=== PATIENT | female | born 1955 | race Caucasian/White ===

== ENCOUNTER → 2017-02-02 | Outpatient (CLI) | payer BC, OTHER ==
--- NOTE | 2017-02-02 15:30 | DIAGNOSTIC IMAGING REPORT ---
LEFT FOOT MIN 3 VIEWS CLINICAL HISTORY: LEFT FOOT PAIN pain COMPARISON: None. DISCUSSION: The bones and joint spaces appear intact. There is no evidence of fracture, dislocation or bony disease. Mild lateral soft tissue edema. Mild ossification Achilles tendon insertion. IMPRESSION: Mild soft tissue edema. Mild degenerative change. No acute process. Electronically signed by: Maged Munoz M.D. 02/02/2017 3:28 PM Dictated Date/Time: 02/02/2017 3:27 PM
== END ==
LOC: C.RDSM 08:00
PROVIDERS: ATTEND Internal Medicine
DX: M79.672 Pain in left foot (principal)

== ENCOUNTER → 2017-04-15 | Outpatient (CLI) | payer OTHER | END | disposition home or self-care (01) | LOC: C.MAMM 14:52 | PROVIDERS: ATTEND Internal Medicine Endocrinology, Diabetes & Metabolism | DX: M85.851 Other specified disorders of bone density and structure, right thigh (principal); M85.852 Other specified disorders of bone density and structure, left thigh; M85.88 Other specified disorders of bone density and structure, other site ==

== ENCOUNTER → 2017-05-11 | Outpatient (CLI) | payer OTHER ==
--- NOTE | 2017-05-12 08:11 | MAMMOGRAPHY REPORT ---
BILATERAL DIGITAL SCREENING MAMMOGRAM TOMOSYNTHESIS WITH CAD: 05/11/2017 CLINICAL HISTORY: Routine screening examination. TECHNIQUE: Breast tomosynthesis in addition to standard 2D mammography was performed. Current study was also evaluated with a Computer Aided Detection (CAD) system. COMPARISON: Comparison is made to exams dated: 07/27/1997 mammogram and 05/06/2016 mammogram - [facility]. BREAST COMPOSITION: The tissue of both breasts is almost entirely fatty. FINDINGS: The parenchymal pattern is unchanged. No developing mass, architectural distortion or clus ter of suspicious microcalcifications is seen in either breast. IMPRESSION: ACR BI-RADS CATEGORY 2: BENIGN There is no mammographic evidence of malignancy. A 1 year screening mammogram is recommended. The pa tient will receive written notification of the results. Approximately 10% of breast cancers are not detected with mammography. A negative mammographic report should not delay biopsy if a clinically suggestive mass is present. Arlene Reddy M.D. ay/:05/11/2017 16:48:57 Butcher Assistant: Caitlin DE LA TORRE(Sindhu)(M), [facility] letter sent: Normal 1/2 BI-RADS Code: ACR BI-RADS Category 2: Benign
== END | disposition home or self-care (01) ==
LOC: C.MAMM 16:18
PROVIDERS: ATTEND Family Medicine
DX: Z12.31 Encounter for screening mammogram for malignant neoplasm of breast (principal)

== ENCOUNTER → 2017-12-30 | Outpatient (CLI) | payer OTHER | END | disposition home or self-care (01) | LOC: C.RDSM 13:06 | PROVIDERS: ATTEND Family Medicine | DX: M25.561 Pain in right knee (principal); M25.562 Pain in left knee ==

== ENCOUNTER → 2018-03-24 | Outpatient (CLI) | payer BC ==
--- NOTE | 2018-03-24 17:03 | DIAGNOSTIC IMAGING REPORT ---
RIGHT FOOT 3 VIEWS CLINICAL HISTORY: Right foot injury. FINDINGS: 3 views of the right foot are compared to study dated 07/31/2010. The skeletal structures are osteopenic. There has been buttress plate fixation at base of the first metatarsal as well as the distal second metatarsal. No acute fracture is identified. There is no radiographic evidence of Lisfranc injury. Mild osteoarthritic change is seen at the first metatarsophalangeal joint. There is a large dorsal calcaneal enthesophyte. Mild lateral soft tissue swelling is suggested. IMPRESSION: 1. No acute osseous abnormality is identified. 2. Osteopenia with postoperative and degenerative change as above. Electronically signed by: Dallas De La Cruz M.D. 03/24/2018 5:02 PM Dictated Date/Time: 03/24/2018 5:00 PM
== END | disposition home or self-care (01) ==
LOC: C.RAD1850 16:42
PROVIDERS: ATTEND Family Medicine
DX: S99.921A Unspecified injury of right foot, initial encounter (principal); X58.XXXA Exposure to other specified factors, initial encounter; M85.871 Other specified disorders of bone density and structure, right ankle and foot; Z88.0 Allergy status to penicillin; Z88.8 Allergy status to other drugs, medicaments and biological substances; Z91.018 Allergy to other foods

== ENCOUNTER → 2018-04-05 | Outpatient (CLI) | payer BC, OTHER | END | disposition home or self-care (01) | LOC: C.RDSM 13:37 | PROVIDERS: ATTEND Family Medicine | DX: M79.671 Pain in right foot (principal) ==

== ENCOUNTER → 2018-04-12 | Outpatient (CLI) | payer OTHER ==
--- NOTE | 2018-04-12 14:25 | DIAGNOSTIC IMAGING REPORT ---
CHEST 2 VIEWS ROUTINE CLINICAL HISTORY: 63 years-old Female presenting with J18.9 chest pain. TECHNIQUE: PA and lateral views of the chest were obtained. COMPARISON: 12/30/2010. FINDINGS: Cardiomediastinal silhouette normal. Skin folds noted over the lower periphery of the right hemithorax. Lungs and pleural spaces clear. Interval development of diffuse sclerosis in one of the lower thoracic vertebral bodies and a lumbar vertebral body. This most likely represents kyphoplasty though it is an unusual appearance. Upper abdomen normal. IMPRESSION: 1. No acute cardiopulmonary disease. 2. Dense sclerosis of a lower thoracic vertebral body and upper lumbar vertebral body may suggest kyphoplasty changes. Correlate clinically. Electronically signed by: Zen Villagomez M.D. 04/12/2018 2:23 PM Dictated Date/Time: 04/12/2018 2:12 PM
== END | disposition home or self-care (01) ==
LOC: C.RAD1850 14:00
PROVIDERS: ATTEND Student in an Organized Health Care Education/Training Program
DX: J18.9 Pneumonia, unspecified organism (principal)